=== PATIENT | male | born 1955 | race Caucasian/White ===

== ENCOUNTER 2019-07-11 09:04 | Emergency (ER) | payer OTHER ==
[~2019-07-11] VITALS: Ht 182.9 cm; Wt 109.8 kg
[~2019-07-11 09:04] MED LIST: ASA325 PO; ATENOLOL100 MG PO; HYDROCHLOROTHIA25 MG PO
--- NOTE | 2019-07-11 09:38 | Diagnostic Imaging Report ---
Left ankle 3 - views HISTORY: Pain status post fall. Twisting injury. COMPARISON: None FINDINGS: Comminuted intra-articular impaction fracture of the distal tibial epiphysis. There is also a mildly displaced spiral fracture of the distal fibular epiphysis Degenerative changes of the tibiotalar, subtalar and talonavicular joints. The ankle mortise is disrupted Overlying soft tissue swelling. Vascular calcifications. IMPRESSION: 1. Comminuted intra-articular impaction fracture of the distal tibial epiphysis. There is also 2. Mildly displaced spiral fracture of the distal fibular epiphysis Signed by: Dr. Jamila Gaffney M.D. on 07/11/2019 9:35 AM
[2019-07-11] MEDS ORDERED: HYDROCODONE/APAP 5MG-325MG TAB ONE (09:41)
[2019-07-11] MEDS ORDERED: HYDROCODONE/APAP 5MG-325MG TAB PO ONE (09:45)
[2019-07-11 10:32] VITALS: BP 161/92
[2019-07-24] MEDS ORDERED: METFORMIN HCL500 MG PO (06:41)
[2019-08-09] MEDS ORDERED: CEPHALEXIN500 MG PO (15:37)
[2019-08-09] MEDS ORDERED: XARELTO10 MG PO (15:37)
[2019-08-14] MEDS ORDERED: METFORMIN HCL500 MG PO (06:40)
== END 2019-07-11 10:34 | disposition home or self-care (01) ==
LOC: FSED 09:04
DX: S82.252A Displaced comminuted fracture of shaft of left tibia, initial encounter for closed fracture (principal); S82.832A Other fracture of upper and lower end of left fibula, initial encounter for closed fracture; X50.1XXA Overexertion from prolonged static or awkward postures, initial encounter; Y92.480 Sidewalk as the place of occurrence of the external cause
CPT/HCPCS: 99284

== ENCOUNTER → 2019-07-19 | Outpatient (CLI) | payer BC ==
[~2019-07-19] MED LIST changes: +CEPHALEXIN500 MG PO; +METFORMIN HCL500 MG PO; +XARELTO10 MG PO
--- NOTE | 2019-07-19 15:12 | Diagnostic Imaging Report ---
EXAM: CT left ankle WITHOUT contrast. CT left foot without contrast INDICATION: Ankle pain. Foot pain. Fracture of lateral malleolus. Fibular fracture. ^[id number] ^1030 ^DISPLACED FRACTURE OF LATERAL MALLE COMPARISON: 07/11/2019 TECHNIQUE: Left ankle and left foot were scanned utilizing a multidetector helical scanner without administration of IV contrast. Coronal and sagittal reformations were obtained. Routine protocol was performed. IV CONTRAST: None ORAL CONTRAST: Water COMPLICATIONS: None RADIATION DOSE: Total DLP: 232 mGy*cm Estimated effective dose: (DLP x 0.015 x size factor) mSv CTDIvol has been reviewed. It is below the limits set by the Radiation Protocol Committee (RPC). Dose modulation, iterative reconstruction, and/or weight based adjustment of the mA/kV was utilized to reduce the radiation dose to as low as reasonably achievable. FINDINGS: Left ankle and left foot CT scan: Scattered vascular calcification. Scattered degenerative change. Posterior and inferior calcaneal bone spurs. No osseous erosion. Small accessory ossicles in the distal posterior tibial tendon. Small accessory ossicles in the distal peroneal longus tendon. Soft tissue swelling. Overlying cast. Severely comminuted displaced intra-articular fracture involving the medial malleolus/distal medial tibia with several adjacent small bone fragments. Additionally, there is a comminuted displaced intra-articular fracture involving the posterior malleolus with several adjacent small bone fragments. Comminuted intra-articular fracture involving the distal fibula with several adjacent small bone fragment. There is disruption of the ankle joint with suspected ligamentous injury. The distal tibia is displaced in a lateral and anterior direction and abuts the adjacent distal fibula. This is best seen on coronal reformatted image [address] scan images and sagittal reformatted image 27 series [address] scan images. There is what appears to be a degenerative cyst in the medial talar dome. Impression: Severely comminuted displaced intra-articular fracture involving the medial malleolus/distal medial tibia, posterior malleolus and lateral malleolus. Several adjacent small bone fragments are seen. There is disruption of the ankle joint with suspected ligamentous injury. Signed by: Dr. Abdelrahman Zamarripa M.D. on 07/19/2019 3:09 PM
== END ==
LOC: CT 10:11
PROVIDERS: ATTEND Specialist
DX: S82.62XA Displaced fracture of lateral malleolus of left fibula, initial encounter for closed fracture (principal); S82.52XA Displaced fracture of medial malleolus of left tibia, initial encounter for closed fracture

== ENCOUNTER → 2019-07-24 | Day surgery (SDC) | payer BC ==
[~2019-07-24] MED LIST changes: +ACETAMINOPHEN/CODEINE 300MG - 30MG TAB ONE; +CEFAZOLIN SOD 1 GM/NS 50ML 100 ML IV ONE; +DEXAMETHASONE SOD PHOS INJ 4 MG/ML VIAL ONE; +FENTANYL CITRATE/PF 100MCG/2 ML INJ ONE; +HYDROMORPHONE 1MG/1ML INJ ONE; +INSULIN REGULAR, HUMAN 100 UNIT/1 ML 3ML VIAL ONE; +KETOROLAC TROMETHAMINE 30 MG/ML VIAL ONE; +LIDOCAINE HCL 2% LOCAL INJ 5 ML SDV VIAL INJ ONE; +MIDAZOLAM HCL 2 MG/2 ML VIAL ONE; +ONDANSETRON HCL INJ 2MG/ML 2ML 2 MG/ML VIAL ONE; +PROPOFOL IV EMULSION 10 MG/ML 20 ML VIAL ONE; +SEVOFLURANE INHAL SOLN 250 ML PEN BTL ONE
--- OUTSIDE RECORDS SUMMARY | 2019-07-24 06:11 | XMS REPORT ---
[facility] Address Unknown Phone Unavailable Care Team Providers Care Service Restorer Emergency Name Role Phone BELÉN CASTRO Unavailable Unavailable Roque HAZEL Unavailable Unavailable Problems This patient has no known problems. Allergies, Adverse Reactions, Alerts This patient has no known allergies or adverse reactions. Medications This patient has no known medications. Results Test Description Test Time Test Comments Text Results Atomic Results Result Comments CT FOOT LEFT WO 2019-07-19 14:53:00 [facility] [address] [address] Patient Name: BRIDGER MORALES MR #: [id number] : 1955 Age/Sex: 64/M Req #: [id number] Adm Physician: Ordered by: BELÉN CASTRO MD Report #: [id number] Location: CT Room/Bed: Procedure: [id number] CT/CT FOOT LEFT WO Exam Date: 07/19/19 Exam Time: 1030 REPORT STATUS: Signed EXAM: CT left ankle WITHOUT contrast. CT left foot without contrast INDICATION: Ankle pain. Foot pain. Fracture of lateral malleolus. Fibular fracture. [id number] 1030 DISPLACED FRACTURE OF LATERAL MALLE COMPARISON: 07/11/2019 TECHNIQUE: Left ankle and left foot were scanned utilizing a multidetector helical scanner without administration of IV contrast. Coronal and sagittal reformations were obtained. Routine protocol was performed. IV CONTRAST: None ORAL CONTRAST: Water COMPLICATIONS: None RADIATION DOSE: Total DLP: 232 mGy*cm Estimated effective dose: (DLP x 0.015 x size factor) mSv CTDIvol has been reviewed. It is below the limits set by the Radiation Protocol Committee (RPC). Dose modulation, iterative reconstruction, and/or weight based adjustment of the mA/kV was utilized to reduce the radiation dose to as low as reasonably achievable. FINDINGS: Left ankle and left foot CT scan: Scattered vascular calcification. Scattered degenerative change. Posterior and inferior calcaneal bone spurs. No osseous erosion. Small accessory ossicles in the distal posterior tibial tendon. Small accessory ossicles in the distal peroneal longus tendon. Soft tissue swelling. Overlying cast. Severely comminuted displaced intra-articular fracture involving the medial malleolus/distal medial tibia with several adjacent small bone fragments. Additionally, there is a comminuted displaced intra-articular fracture involving the posterior malleolus with several adjacent small bone fragments. Comminuted intra-articular fracture involving the distal fibula with several adjacent small bone fragment. There is disruption of the ankle joint with suspected ligamentous injury. The distal tibia is displaced in a lateral and anterior direction and abuts the adjacent distal fibula. This is best seen on coronal reformatted image [address] scan images and sagittal reformatted image 27 series [address] scan images. There is what appears to be a degenerative cyst in the medial talar dome. Impression: Severely comminuted displaced intra-articular fracture involving the medial malleolus/distal medial tibia, posterior malleolus and lateral malleolus. Several adjacent small bone fragments are seen. There is disruption of the ankle joint with suspected ligamentous injury. Sign ed by: Dr. Abdelrahman Zamarripa M.D. on 07/19/2019 3:09 PM Dictated By: ABDELRAHMAN ZAMARRIPA MD, MD [id number] Transcribed By: KOJO on 07/19/19 6269 COPY TO: BELÉN CASTRO MD CT ANKLE LEFT WO 2019-07-19 14:53:00 [address] [address] Patient Name: BRIDGER MORALES MR #: [id number] : 1955 Age/Sex: 64/M [facility] #: [id number] [facility] #: [id number] [facility] Physician: Ordered by: BELÉN CASTRO MD Report #: [id number] Location: CT Room/Bed: Procedure: [id number] CT/CT ANKLE LEFT WO Exam Date: 07/19/19 Exam Time: 1030 REPORT STATUS: Signed EXAM: CT left ankle WITHOUT contrast. CT left foot without contrast INDICATION: Ankle pain. Foot pain. Fracture of lateral malleolus. Fibular fracture. [id number] DISPLACED FRACTURE OF LATERAL MALLE COMPARISON: 07/11/2019 TECHNIQUE: Left ankle and left foot were scanned utilizing a multidetector helical scanner without administration of IV contrast. Coronal and sagittal reformations were obtained. Routine protocol was performed. IV CONTRAST: None ORAL CONTRAST: Water COMPLICATIONS: None RADIATION DOSE: Total DLP: 232 mGy*cm Estimated effective dose: (DLP x 0.015 x size factor) mSv CTDIvol has been reviewed. It is below the limits set by the Radiation Protocol Committee (RPC). Dose modulation, iterative reconstruction, and/or weight based adjustment of the mA/kV was utilized to reduce the radiation dose to as low as reasonably achievable. FINDINGS: Left ankle and left foot CT scan: Scattered vascular calcification. Scattered degenerative change. Posterior and inferior calcaneal bone spurs. No osseous erosion. Small accessory ossicles in the distal posterior tibial tendon. Small accessory ossicles in the distal peroneal longus tendon. Soft tissue swelling. Overlying cast. Severely comminuted displaced intra-articular fracture involving the medial malleolus/distal medial tibia with several adjacent small bone fragments. Additionally, there is a comminuted displaced intra-articular fracture involving the posterior malleolus with several adjacent small bone fragments. Comminuted intra-articular fracture involving the distal fibula with several adjacent small bone fragment. There is disruption of the ankle joint with suspected ligamentous injury. The distal tibia is displaced in a lateral and anterior direction and abuts the adjacent distal fibula. This is best seen on coronal reformatted image [address] scan images and sagittal reformatted image 27 series [address] scan images. There is what appears to be a degenerative cyst in the medial talar dome. Impression: Severely comminuted displaced intra-articular fracture involving the medial malleolus/distal medial tibia, posterior malleolus and lateral malleolus. Several adjacent small bone fragments are seen. There is disruption of the ankle joint with suspected ligamentous injury. Sign ed by: Dr. Abdelrahman Zamarripa M.D. on 07/19/2019 3:09 PM Dictated By: ABDELRAHMAN ZAMARRIPA MD, MD 08 Transcribed By: KOJO on 07/19/191508 COPY TO: BELÉN CASTRO MD [facility]KLE [facility] 2019-07-11 09:32:00 [address] [address] Patient Name: BRIDGER MORALES MR #: [id number] : 1955 Age/Sex: 64/M Req #: [id number] Adm Physician: Ordered by: KARMA HAZEL MD Report #: [id number] Location: [facility] Room/Bed: Procedure: [id number] HOPD/ANKLE 3VIEW LT - [facility] Exam Date: 07/11/19 Exam Time: 926 REPORT STATUS: Signed Left ankle 3 - views HISTORY: Pain status post fa ll. Twisting injury. COMPARISON: None FINDINGS: Comminuted intra-articular impaction fracture of the distal tibial epiphysis. There is also a mildly displaced spiral fracture of the distal fibular epiphysis Degenerative changes of the tibiotalar, subtalar and talonavicular joints. The ankle mortise is disrupted Overlying soft tissue swelling. Vascular calcifications. IMPRESSION: 1. Comminuted intra-articular impaction fracture of the distal tibial epiphysis. There is also 2. Mildly displaced spiral fracture of the distal fibular epiphysis Signed by: Dr. Jamila Carter M.D. on 07/11/2019 9:35 AM Dictated By: NICHOLAS CARTER MD, MD 4 Transcribed By: KOJO on 07/11/19934 COPY TO: KARMA HAZEL MD
[2019-07-24 07:26] LABS: BLOOD UREA NITROGEN 16 mg/dL (7-26); BUN/CREATININE RATIO 19 (6-25); CARBON DIOXIDE 23 mmol/L (22-29); CHLORIDE 105 mmol/L (98-107); CREATININE, SERUM 0.84 mg/dL (0.72-1.25); EST GLOMERULAR FILTRATION RATE > 60 ML/MIN (60-); GLUCOSE 239 mg/dL (74-118); SODIUM 135 mmol/L (136-145)
[2019-07-24 13:30] VITALS: BP 133/73
--- NOTE | 2019-07-26 11:39 | Operative Report ---
DATE OF PROCEDURE: 07/24/2019 SURGEON: Que Meyers MD PREOPERATIVE DIAGNOSES: Left pilon fracture, left ankle subluxation. POSTOPERATIVE DIAGNOSES: Left pilon fracture, left ankle subluxation. OPERATIONS/PROCEDURES PERFORMED: 1. The patient underwent a closed reduction of the left ankle mortise. 2. Application of the left lower extremity external fixator. JINRIKSHA DRIVER: There was no assistant unit forester. ANESTHESIA: General endotracheal intubation anesthesia. IV FLUIDS: Per the anesthesia record. BRIEF DISCUSSION OF THE PATIENT'S OPERATIVE PROCEDURE: Mr. Henry was brought to the operating room and placed in supine on the operating room table. Following induction of general anesthesia and endotracheal intubation, the patient's left lower extremity was examined under anesthesia. He was found to have a splint encompassing his left lower extremity. The splint had obvious wear on the bottom of the splint, indicated the patient did not remain nonweightbearing as instructed several times in the office. With the patient's splint removed, he had an obvious deformity at the ankle joint. Fluoroscopic evaluation of the ankle joint demonstrated a displaced fracture of the fibula, medial malleolus, and posterior malleolus. There was also mild indentation of the tibial plafond indicating a pilon fracture. There was significant posterior and medial subluxation of the ankle joint. The patient's lower extremity was prepped and draped in standard surgical fashion. A closed reduction of the ankle mortise was easily achieved with the patient fully relaxed. A Jacob external fixator was applied to the left lower extremity. Two pins were placed in the tibial shaft and a transfixation pin was placed through the body of the calcaneus in line with the tibial plafond. Bars were fixed to the pins and the fracture was reduced in a manual fashion. The frame was set for capturing the fracture was reduced position. Fluoroscopic evaluation of the ankle at this time demonstrated marked improvement in the alignment of the ankle joint. The pin sites were cleaned. Sterile dressings were applied. The patient was also placed in a long-leg posterior splint, that was bent at the knee in an attempt to force the patient to remain nonweightbearing on his left lower extremity. The patient was then awakened and taken to the postanesthesia care in stable condition. MD CHEKO Xiong/ISMAEL /[id number]
== END | disposition home or self-care (01) ==
LOC: OR 06:09
PROVIDERS: ATTEND Specialist
DX: S82.872A Displaced pilon fracture of left tibia, initial encounter for closed fracture (principal); S82.852A Displaced trimalleolar fracture of left lower leg, initial encounter for closed fracture; E11.9 Type 2 diabetes mellitus without complications; X58.XXXA Exposure to other specified factors, initial encounter; Z79.82 Long term (current) use of aspirin; Z68.33 Body mass index [BMI] 33.0-33.9, adult; Z87.891 Personal history of nicotine dependence
CPT/HCPCS: 20690; 27825; 36415; 76000; 80048; 82948; 93005; 97116; 97161; 97530; C1713 ×3; J0690; J1100; J1170; J1885; J2001; J2250; J2405; J2704; J3010; J1817

== ENCOUNTER → 2019-08-14 | Day surgery (SDC) | payer BC, OTHER ==
[2019-08-12 09:34] LABS: BASOPHILS % 0.4 % (0.0-1.0); EOSINOPHILS # (AUTO) 0.2 (0.0-0.4); EOSINOPHILS % 2.5 % (0.0-6.0); HEMATOCRIT 38.1 % (38.2-49.6); HEMOGLOBIN 12.7 g/dL (14.0-18.0); LYMPHOCYTES % 25.1 % (18.0-39.1); MEAN CORPUSCULAR HEMOGLOBIN 28.7 pg (28-32); MEAN CORPUSCULAR HGB CONC 33.3 g/dL (31-35); MONOCYTES % 12.1 % (4.4-11.3); NEUTROPHILS # (AUTO) 4.6 (2.1-6.9); NEUTROPHILS % 58.4 % (38.7-80.0); PLATELET COUNT 292 x10e3/uL (140-360); RED BLOOD COUNT 4.43 x10e6/uL (4.3-5.7); RED CELL DISTRIBUTION WIDTH 13.4 % (11.7-14.4)
[2019-08-12 09:54] LABS: ANION GAP 12.7 mmol/L (8-16); BLOOD UREA NITROGEN 15 mg/dL (7-26); BUN/CREATININE RATIO 16 (6-25); CALCIUM 9.3 mg/dL (8.4-10.2); CARBON DIOXIDE 23 mmol/L (22-29); CHLORIDE 102 mmol/L (98-107); CREATININE, SERUM 0.94 mg/dL (0.72-1.25); EST GLOMERULAR FILTRATION RATE > 60 ML/MIN (60-); GLUCOSE 314 mg/dL (74-118); POTASSIUM 4.7 mmol/L (3.5-5.1); SODIUM 133 mmol/L (136-145)
[~2019-08-14] MED LIST changes: +ACETAMINOPHEN 1000 MG/100 ML IV ONE; -ACETAMINOPHEN/CODEINE 300MG - 30MG TAB ONE; +BACITRACIN 50,000 UNIT VIAL ONE; +BUPIVACAINE HCL 0.5% INJ 30 ML VIAL INJ ONE; +CEFAZOLIN SOD 1 GM VIAL ONE; -HYDROMORPHONE 1MG/1ML INJ ONE; +IBUPROFEN 800MG/ 200ML 200 ML IV ONE; -KETOROLAC TROMETHAMINE 30 MG/ML VIAL ONE; +MORPHINE SULFATE INJ 10 MG/ML ONE
[2019-08-14 13:40] VITALS: BP 134/75
--- NOTE | 2019-08-28 23:06 | Operative Report ---
DATE OF PROCEDURE: 08/14/2019 SURGEON: Que Meyers MD PREOPERATIVE DIAGNOSES: Left displaced pilon fracture and left displaced fibular fracture. POSTOPERATIVE DIAGNOSES: Left displaced pilon fracture and left displaced fibular fracture. OPERATION PROCEDURE PERFORMED: The patient underwent removal of the left lower extremity external fixator, open reduction and internal fixation of a fibular fracture, open reduction and internal fixation of a pilon fracture, allograft bone grafting of the distal tibia, allograft bone grafting of the distal fibula, and then irrigation and debridement and curettage of the external fixator pin sites. HEAD OF LOSS PREVENTION: There was no assistant professor of criminal justice. ANESTHESIA: General endotracheal intubation anesthesia. IV FLUIDS: Per the anesthesia record. BRIEF DESCRIPTION OF THE PATIENT'S OPERATIVE PROCEDURE: Mr. Henry was taken to the operating room and placed in supine position on the operating room table. Following induction of general anesthesia as well as endotracheal intubation, the patient's left lower extremity was examined under anesthesia. He was found to have an external fixator spanning the left ankle joint. Examination of the patient's soft tissues demonstrated marked reduce swelling about the ankle joint. There were no ulcers or fracture blisters about the ankle. The skin was easily dimpled. Fluoroscopic evaluation of the patient's lower extremity demonstrated a pilon fracture and fibular fracture. The tibiotalar joint was translated laterally. The patient had admitted to weightbearing on the lower extremity despite multiple requests to remain nonweightbearing. The case was begun by removing the patient's external fixator. The frame was loosened and removed from the stabilizing pins. The calcaneal pin was found to be grossly unstable due to the patient's weightbearing. The medial aspect of the pin was prepped sterilely and pin cutters were used to excise the pin at the level of the skin. It was then removed by just pulling the pin free from the calcaneus. This pin did not require that it to be backed out. The pins in the tibia were then removed. All pin sites were initially cleaned. The leg was thoroughly scrubbed and then left lower extremity was prepped and draped in standard surgical fashion. The case was begun by approaching the fibula. An incision was made over the lateral aspect of the fibula. This incision was carried through skin only. Blunt dissection used to deepen the incision to the level of the fibular fracture. The dissection was carried both anterior and posteriorly exposing the patient's fracture site. There was considerable displacement of the fibular fracture as well as comminution through the fracture site. Attempts were made to reduce the patient's fibular fracture, but these were unsuccessful. Also, further attempts were made to reduce the tibia fracture in a closed fashion and this was also unsuccessful. An anteromedial incision was then created over the distal tibia extending to the mid aspect of the medial malleolus. This incision was carried through skin only. Blunt dissection was used to deepen the incision and saphenous vein was identified and protected throughout the remainder of the case. Subperiosteal dissection was carried proximally and a full-thickness skin flap was elevated posteromedially. This exposed the patient's tibial plafond fracture. Interval callus formation was taken down and the fracture site was cleaned thoroughly. We then irrigated thoroughly. A plate was chosen to stabilize the tibia. A tenaculum clamp was used to reapproximate the tibial plafond injury. The reduction was checked using fluoroscopy and was found to be appropriate. This reduction was also looked out under direct vision, taking care to evaluate the articular surface for reduction of the tibial plafond. The plate was then affixed to the medial aspect of the tibia with combinations of cortical and locking screws. This provided stabilization of the fracture as well as buttressing of the obliquely oriented pilon fracture. The articular surface was reduced essentially anatomically. The fracture site was cleaned thoroughly. Evaluation of the posterior aspect of the tibial plafond demonstrated an articular surface depression. A Joker was used to elevate the articular surface to a more normal anatomic position. The defect in the metaphyseal section of the plafond was then irrigated and bone grafted. The oblique portion of the pilon fracture was then reduced and held in place with a tenaculum clamp. The reduction was assessed fluoroscopically as well as under direct vision. The articular surface was reduced in this fashion. The plate was then placed over the medial aspect of the distal tibia and affixed to the tibia with combinations of cortical and locking screws. Repeat x-ray evaluation demonstrated stabilization and buttressing of the obliquely oriented pilon fracture. Direct visualization confirmed reduction of the patient's articular surface. The wound was then copiously irrigated. The remainder of the fracture was again bone grafted. The soft tissues were closed in a multilayer fashion. Attention was then returned to the fibular fracture. Reduction of the pilon injury resulted in reduction of the patient's fibular fracture. A plate was contoured to the distal aspect of the fibula and affixed the fibula with combinations of cortical and locking screws. This lateral wound was again copiously irrigated and the comminuted fracture site was bone grafted. The wound was then closed in a multilayer fashion. Sterile dressings were applied and the patient was then placed in a multi-sided long-leg bent knee splint to try to force compliance with the nonweightbearing restrictions following the surgery. Sterile dressings were applied to these wounds. Attention was then turned to the external fixator pin sites. Devitalized tissue was debrided in both a blunt and sharp fashion. All pin sites were then irrigated profusely. They were then packed to heal by secondary intention. A well-padded three-sided bent knee long-leg splint was then applied to the patient's lower extremity in an attempt to gain compliance with his strict nonweightbearing status. He was then awakened and taken to the postanesthesia care in stable condition. MD CHEKO Xiong/ISMAEL /[id number]
== END | disposition home or self-care (01) ==
LOC: OR 05:38
PROVIDERS: ATTEND Specialist
DX: S82.872A Displaced pilon fracture of left tibia, initial encounter for closed fracture (principal); S82.62XA Displaced fracture of lateral malleolus of left fibula, initial encounter for closed fracture; E11.9 Type 2 diabetes mellitus without complications; M19.90 Unspecified osteoarthritis, unspecified site; R03.0 Elevated blood-pressure reading, without diagnosis of hypertension; X58.XXXA Exposure to other specified factors, initial encounter; Z86.19 Personal history of other infectious and parasitic diseases; Z79.02 Long term (current) use of antithrombotics/antiplatelets; Z79.82 Long term (current) use of aspirin; Z79.84 Long term (current) use of oral hypoglycemic drugs; Z68.33 Body mass index [BMI] 33.0-33.9, adult; Z01.812 Encounter for preprocedural laboratory examination; Z11.59 Encounter for screening for other viral diseases
CPT/HCPCS: 20694; 27828; 36415 ×2; 80048; 82948; 85025; 87635; C1713 ×18; J0131; J0690 ×2; J1100; J1817; J2001; J2250; J2270; J2405; J2704; J3010

== ENCOUNTER → 2019-12-16 | Outpatient (RCR) | payer BC ==
[~2019-12-16] MED LIST changes: -ACETAMINOPHEN 1000 MG/100 ML IV ONE; -BACITRACIN 50,000 UNIT VIAL ONE; -BUPIVACAINE HCL 0.5% INJ 30 ML VIAL INJ ONE; -CEFAZOLIN SOD 1 GM VIAL ONE; -CEFAZOLIN SOD 1 GM/NS 50ML 100 ML IV ONE; -DEXAMETHASONE SOD PHOS INJ 4 MG/ML VIAL ONE; -FENTANYL CITRATE/PF 100MCG/2 ML INJ ONE; -IBUPROFEN 800MG/ 200ML 200 ML IV ONE; -INSULIN REGULAR, HUMAN 100 UNIT/1 ML 3ML VIAL ONE; -LIDOCAINE HCL 2% LOCAL INJ 5 ML SDV VIAL INJ ONE; -MIDAZOLAM HCL 2 MG/2 ML VIAL ONE; -MORPHINE SULFATE INJ 10 MG/ML ONE; -ONDANSETRON HCL INJ 2MG/ML 2ML 2 MG/ML VIAL ONE; -PROPOFOL IV EMULSION 10 MG/ML 20 ML VIAL ONE; -SEVOFLURANE INHAL SOLN 250 ML PEN BTL ONE
== END ==
LOC: PT 12-10 15:47
PROVIDERS: ATTEND Specialist
DX: S82.892A Other fracture of left lower leg, initial encounter for closed fracture (principal); M24.672 Ankylosis, left ankle

== ENCOUNTER 2020-01-03 08:00 | Outpatient (RCR) | payer BC | END 2020-01-15 | LOC: PT 08:00 | PROVIDERS: ATTEND Specialist | DX: S82.872A Displaced pilon fracture of left tibia, initial encounter for closed fracture (principal); M24.672 Ankylosis, left ankle ==

== ENCOUNTER 2020-01-17 07:51 | Outpatient (RCR) | payer BC, OTHER | END 2020-02-15 | LOC: PT 07:51 | PROVIDERS: ATTEND Specialist | DX: S82.872A Displaced pilon fracture of left tibia, initial encounter for closed fracture (principal); M24.672 Ankylosis, left ankle ==